=== PATIENT | female | born 1990 | race Asian ===

== ENCOUNTER 2021-09-21 19:39 | Emergency (ER) | payer BC ==
[~2021-09-21] VITALS: Ht 157.5 cm; Wt 45.5 kg
--- NOTE | 2021-09-21 20:20 | NUR ---
2020 G1L0 21.3 WEEK GEST TO LR5 WITH C/O RIGHT SIDE PINCHING PAIN STARTING ON SATUR AND BECOMING WORSE TODAY AROUND 1500. SL NAUSEA YESTERDAY WITH NO EMESIS AND ONE DIARRHEA STOOL LAST NIGHT. TEMP 98.4 B/P 110/55 PULSE 88 RESP 16. NO REBOUND TENDERNESS NOTED. DR HOANG CALLED IN AND WANTS PT EVALUATED IN ER FOR APPENDICITIS. ER CHARGE NURSE NOTED. PT TO ER PER W/C FOR FURTHER EVALUATION. FHT DOPPLER DONE AND 160'S NOTED.
[2021-09-21 20:30] VITALS: BP 110/55; PULSE 88; TEMP 98.4
[2021-09-21 20:40] VITALS: TEMP 98.2
[2021-09-21] MEDS ORDERED: CONCEPT DHA1 CAP PO (20:42)
[2021-09-21] MEDS ORDERED: VIREAD PO (20:43)
[2021-09-21] MEDS ORDERED: VITAMIN D 400400 IU PO (20:44)
[2021-09-21 22:17] LABS: COLLECTION METHOD CLEAN CATCH
[2021-09-21 22:21] LABS: BASO # 0.1 K/mm3 (0.0-0.2); BASO % 0.7 % (0.0-2.0); EOS # 0.1 K/mm3 (0.0-0.7); EOS % 0.9 % (0.0-4.0); GRAN # 8.4 K/mm3 (1.4-6.5); GRAN % 66.6 % (42.2-75.2); HEMATOCRIT 32.5 % (37.0-47.0); LYMPH # 3.2 K/mm3 (1.2-3.4); LYMPH % 25.5 % (20.0-51.0); MEAN CELL VOLUME 83 fl (80.0-100.0); MEAN CORPUSCULAR HEMOGLOBIN 28 pg (27-31); MEAN CORPUSCULAR HGB CONC 34 g/dl (33.0-37.0); MEAN PLATELET VOLUME 9.9 fl (7.4-10.4); MONO # 0.6 K/mm3 (0.1-0.6); PLATELET COUNT 323 K/mm3 (130-400); REDCELL DISTRIBUTION WIDTH-CV 13.5 % (11.5-14.5)
[2021-09-21 22:24] LABS: PH 6 (5-8); SQUAMOUS EPITHELIAL 0-2 /hpf (0-10); URINE APPEARANCE Clear (CLEAR/HAZY); URINE BACTERIA Rare /hpf (NONE SEEN); URINE BILIRUBIN Negative (NEGATIVE); URINE BLOOD Negative (NEGATIVE); URINE GLUCOSE Negative (NEGATIVE); URINE KETONE Negative (NEGATIVE); URINE LEUKOCYTE ESTERASE Trace (NEGATIVE); URINE NITRATE Negative (NEGATIVE); URINE PROTEIN(semi-quant) Negative (NEGATIVE); URINE RBC 0-2 /hpf (0-2); URINE UROBILINOGEN Negative (NEGATIVE)
[2021-09-21 22:27] LABS: URINE COLOR Yellow (YELLOW)
[2021-09-21 22:36] LABS: ALBUMIN 3.3 gm/dL (3.5-5.0); BILIRUBIN,TOTAL 0.3 mg/dL (0.2-1.2); CALCIUM 8.8 mg/dL (8.4-10.2); CREATININE, serum 0.49 mg/dL (0.57-1.11); POTASSIUM 3.6 mmol/L (3.5-4.5); TOTAL PROTEIN 7.1 gm/dL (6.2-8.1)
[2021-09-22 00:31] VITALS: BP 110/65; PULSE 84
== END 2021-09-22 00:31 | disposition home or self-care (01) ==
LOC: LDRO 19:39 → COL.ER 19:39 → EDSTATUS 20:19 → COL.ER 09-22 00:31
PROVIDERS: Personal Emergency Response Attendant
DX: O26.892 Other specified pregnancy related conditions, second trimester (principal); R10.31 Right lower quadrant pain; Z3A.21 21 weeks gestation of pregnancy
CPT/HCPCS: J7030; Q9967

== ENCOUNTER 2022-01-27 09:45 | Outpatient (CLI) | payer BC ==
[~2022-01-27] VITALS: Ht 154.9 cm; Wt 55.9 kg
[~2022-01-27 09:45] MED LIST: CONCEPT DHA1 CAP PO; VIREAD PO; VITAMIN D 400400 IU PO
--- NOTE | 2022-01-27 09:55 | NUR ---
Patient ambulatory to LR3 with spouse, changed into gown, FHR/TOCO monitors placed and explained. Spouse translating for patient. Spouse states patient started dada at about 0400 and were 30min apart and now 20 minutes apart and having bloody show when she wipes. Spouse translates for patient and patient states she has had fluid leaking that is clear. Patient denies decreased movement or vaginal bleeding. Plan of care discussed. SVE-2/75/-2 and amniotest negative and mucus and bloody show noted. Patient and spouse updated and plan of care discussed.
[2022-01-27] MEDS ORDERED: FERROUSGLUC256MG (10:11)
[2022-01-27] MEDS ORDERED: PRENATAL TABLET PO (10:11)
[2022-01-27] MEDS ORDERED: VIREAD PO (10:12)
[2022-01-27] MEDS ORDERED: MIRALAX PA17 GM/Dose PO (10:12)
[2022-01-27 10:30] VITALS: BP 102/71; PULSE 95; TEMP 98.4
[2022-01-27 11:16] VITALS: BP 99/50; PULSE 90
--- NOTE | 2022-01-27 11:16 | NUR ---
Patient off monitors and given discharge instructions. Spouse translates for patient. Questions answered. 1125: Patient ambulates off unit with spouse.
[2022-01-28] MEDS ORDERED: MOTRIN 800800 MG/TAB PO (14:54)
[2022-01-28] MEDS ORDERED: PERCOCET 325 MG1 TA2 PO (18:09)
== END 2022-01-27 11:25 | disposition home or self-care (01) ==
LOC: LDRO 09:45
DX: Z34.90 Encounter for supervision of normal pregnancy, unspecified, unspecified trimester (principal); Z3A.00 Weeks of gestation of pregnancy not specified

== ENCOUNTER 2022-01-28 03:34 | Outpatient (CLI) | payer BC ==
[~2022-01-28] VITALS: Ht 154.9 cm; Wt 55.9 kg
[~2022-01-28 03:34] MED LIST changes: +FERROUSGLUC256MG; +MIRALAX PA17 GM/Dose PO; +PRENATAL TABLET PO
--- NOTE | 2022-01-28 03:45 | NUR ---
To unit via wheelchair for labor assessment, accompanied by spouse. Pt speaks very little [place]an, possibly understands more. trnaslates and is attentive at bedside. reports contractions have been since 01/27/2022. Oriented to room, monitor, plan of care. reports they were here in labor and delivery on 01/27/2022.
[2022-01-28 04:00] VITALS: BP 120/73; PULSE 90
--- NOTE | 2022-01-28 05:45 | NUR ---
Discharge instructions reiewed with pt and spouse. concerned that pt is "having so many contractions and a lot of pain" Explained to that the difference between Sanger Jimenez contractions and labor contractions is if the cervix is dilating. 0572 Discharged off unit via wheelchair
[2022-01-28] MEDS ORDERED: MOTRIN 800800 MG/TAB PO (14:54)
[2022-01-28] MEDS ORDERED: PERCOCET 325 MG1 TA2 PO (18:09)
== END 2022-01-28 05:50 | disposition home or self-care (01) ==
LOC: LDRO 03:34 → LDR 04:22 → LDRO 05:50
DX: O62.4 Hypertonic, incoordinate, and prolonged uterine contractions (principal); Z3A.00 Weeks of gestation of pregnancy not specified
CPT/HCPCS: OP

== ENCOUNTER 2022-01-28 09:36 | Inpatient (IN) | payer BC ==
[2022-01-28] VITALS (47 sets, daily range): BP systolic 77–145; BP diastolic 44–107; PULSE 70–116; TEMP 98–100.1
[~2022-01-28] VITALS: Ht 154.9 cm; Wt 55.9 kg
--- NOTE | 2022-01-28 09:45 | NUR ---
PT SENT OVER FROM CLINIC FOR ADMISSION TO LABOR AND DELIVERY. PLACED IN CLEAN GOWN AND ORIENTED TO LABOR ROOM. DENIES LEAKING OF FLUID. REPORTS POSITIVE MOVEMENT. REPORTS CONTRACTIONS WORSENING SINCE LAST EVENING AROUND 2300. PT UNABLE TO SPEAK CYMRO, /FOB AT BEDSIDE FLUENT IN CYMRO AND ABLE TO INTERPRET. EFM TRACING CATEGORY 1 STRIP UPON ARRIVAL. WILL CONTINUE WITH ADMISSION PER PROTOCOL.
[2022-01-28 10:27] LABS: BASO # 0.1 K/mm3 (0.0-0.2); BASO % 0.5 % (0.0-2.0); EOS % 0.3 % (0.0-4.0); GRAN # 10.3 K/mm3 (1.4-6.5); GRAN % 75.2 % (42.2-75.2); HEMATOCRIT 38.8 % (37.0-47.0); HEMOGLOBIN 13.1 g/dl (12.5-16.0); LYMPH # 2.6 K/mm3 (1.2-3.4); LYMPH % 19.1 % (20.0-51.0); MEAN CELL VOLUME 84 fl (80.0-100.0); MEAN CORPUSCULAR HEMOGLOBIN 28 pg (27-31); MEAN CORPUSCULAR HGB CONC 34 g/dl (33.0-37.0); MEAN PLATELET VOLUME 10.7 fl (7.4-10.4); MONO # 0.6 K/mm3 (0.1-0.6); MONO % 4.2 % (1.7-9.3); PLATELET COUNT 293 K/mm3 (130-400); RED BLOOD COUNT 4.62 M/mm3 (4.10-5.30); REDCELL DISTRIBUTION WIDTH-CV 13.4 % (11.5-14.5)
--- NOTE | 2022-01-28 10:44 | NUR ---
PT REQUESTS EPIDURAL. MICHELLE BOYLE CRNA NOTIFIED.
--- NOTE | 2022-01-28 11:18 | NUR ---
PT TO SITTING POSITION ON EDGE OF BED FOR EPIDURAL PLACEMENT. DIFFICULTY TRACING EFM/TOCO DUE TO MATERNAL POSITIONING. 1118: TEST DOSE PER MICHELLE BOYLE CRNA
--- NOTE | 2022-01-28 11:50 | NUR ---
AT BEDSIDE. SVE /-2. AROM WITH MECONIUM AT THIS TIME PER .
--- NOTE | 2022-01-28 13:50 | NUR ---
AT BEDSIDE. SVE /+1. VORB PER TO BEGIN PITOCIN AT THIS TIME. PT AND SPOUSE AGREEABLE TO POC.
[2022-01-28] MEDS ORDERED: MOTRIN 800800 MG/TAB PO (14:54)
--- NOTE | 2022-01-28 15:30 | NUR ---
AT BEDSIDE. SVE /+1. CATEGORY 1 EFM TRACING. CONTRACTIONS Q3-4 MIN. FIRM WITH PALPATION. PITOCIN INFUSING AT 10MU. NO NEW ORDERS AT THIS TIME.
--- NOTE | 2022-01-28 16:19 | NUR ---
PT C/O INCREASED PAIN IN LOWER BACK AND ABDOMEN. UNABLE TO TALK THROUGH CONTRACTIONS. MULTIPLE ATTEMPTS BY MICHELLE BOYLE TO REDOSE CURRENT EPIDURAL UNSUCCESFUL. DECISION TO PLACE NEW EPIDURAL PER PT AND MICHELLE BOYLE SENIOR CAPITAL MARKETS SPECIALIST SUGGESTIONS. PT TO SITTING POSITION FOR NEW EPIDURAL PLACEMENT. CURRENT EPIDURAL REMOVED AT THIS TIME PER MICHELLE BOLYE CRNA. DIFFICULTY TRACING EFM/TOCO DUE TO MATERNAL POSITION. VITAL SIGNS STABLE. 1619: TEST DOSE PER MICHELLE BOYLE CRNA
--- NOTE | 2022-01-28 16:30 | NUR ---
AT BEDSIDE. SVE /+1. PT PLACED IN LL POSITION ON PEANUT BALL AT THIS TIME. VORB PER TO CONTINUE INCREASING PITOCIN PER PROTOCOL AND FREQUENT POSITION CHANGES TOLERATED.
--- NOTE | 2022-01-28 17:42 | NUR ---
AXILLARY TEMP 100.0. EFM TRACING TACHYCARDIA WITH MINIMAL VARIABILITY. TO BEDSIDE. SVE 7/80/+1, SWOLLEN CERVIX. PITOCIN OFF PER AT THIS TIME. DECISION TO PROCEED WITH CSECTION PER ADVICE. PT AND FOB AGREEABLE WITH POC.
--- NOTE | 2022-01-28 17:58 | NUR ---
IV ANTIBIOTICS STARTED AT THIS TIME. AMPICILLIN AND GENATMYCIN PER VORB FOR DX.CHORIO. PO TYLENOL FOR FEVER CONTROL.
[2022-01-28] MEDS ORDERED: PERCOCET 325 MG1 TA2 PO (18:09)
--- NOTE | 2022-01-28 18:27 | NUR ---
BEDSIDE REPORT AND CARE ASSUMED BY JENNIFER LINN AT THIS TIME
--- NOTE | 2022-01-28 18:35 | NUR ---
Incision site clipped. Hibiclens to incision site. Monitors off. Pt to OR by labor bed with significant other. Do not need to obtain FHR in OR per Dr. Melendez.
--- NOTE | 2022-01-28 20:05 | NUR ---
BP 77/44, PT DENIES FEELING LIGHT HEADED OR NAUSEOUS. FUNDUS FIRM AND DOWN 1 FROM UMBILICUS, SCANT BLEEDING NOTED.
--- NOTE | 2022-01-28 22:15 | NUR ---
REPORT RECEIVED FROM JENNIFER ANTOINE. ASSUMED CARE OF PATIENT AT THIS TIME. PATIENT RESTING IN BED, SIGNIFANT OTHER IN ROOM. INFANT IN NURSERY PER PARENT'S REQUEST. CHUCKS REPLACED UNDER PATIENT'S BUTTOCKS DUE TO PUDDLING OF BLOOD NOTED. UTERUS MASSAGED AND IS FIRM. BRISA-PAD PLACED. POST-OP RECOVERY WAS EXPLAINED TO PATIENT BY THIS NURSE. WILL CONTINUE TO MONITOR FOR INCREASED BLEEDING.
[2022-01-29 03:30] VITALS: BP 109/63; PULSE 63; TEMP 97.7
--- NOTE | 2022-01-29 03:30 | NUR ---
HAMILTON CATHETER EMPTIED AND REMOVED. 1500 ML OF CLEAR, YELLOW URINE NOTED. 10 ML DRAINED FROM CATHETER BALLOON PRIOR TO REMOVAL. PATIENT TOLERATED WELL. EIPIDURAL CATHETER REMOVED. PATIENT ASSISTED TO SIDE OF THE BED WITH MINIMAL ASSISTANCE. PATIENT'S BRISA-AREA CLEANSED WITH WARM WATER. MESH UNDERWEAR AND BRISA-PAD PROVIDED. PATIENT STOOD AT BEDSIDE WITH STANDBY ASSIST. ABDOMINAL BINDER PLACED. PATIENT REPORT MILD DIZZINESS WHICH RESOLVED QUICKLY. PATIENT WAS ABLE TO AMBULATE AROUND HER ROOM AND WASH HER FACE AT THE SINK. PATIENT RETURNED TO BED. VITAL SIGNS OBTAINED. UTERUS NOTED TO BE FIRMLY CONTRACTED WITH SCANT LOCHIA. PATIENT AND SPOUSE EDUCATED BY NURSE ON NORMAL VS ABNORMAL BLEEDING. VERBALIZED UNDERSTANDING.
[2022-01-29 07:00] VITALS: BP 105/71; PULSE 63; TEMP 97.7
--- NOTE | 2022-01-29 09:08 | NUR ---
Initial visit; Parents thanked Retail Marketing Executive for offering congratulations and God's blessings for the of their daughter and requested that prayers continue for mom in thanksgiving for the safe delivery and a rapid and thorough healing.
--- NOTE | 2022-01-29 10:00 | NUR ---
PROFESSIONAL LICENSING DIRECTOR ON SPEAKER PHONE AT THIS TIME TO VERIFY THAT PT DOES NOT DESIRE PROFESSIONAL TRANSLATION. PT STATES TO LICENSING DIRECTOR AND LICENSING DIRECTOR VERIFIES THAT PT WOULD PREFER HER TO INTERPRET FOR HER THROUGHOUT THIS HOSPITAL STAY.
[2022-01-29 12:45] VITALS: BP 98/53; PULSE 78; TEMP 98
[2022-01-29 16:56] VITALS: BP 101/58; PULSE 68; TEMP 98.2
[2022-01-29 20:00] VITALS: BP 96/63; PULSE 96; TEMP 97.6
[2022-01-30 04:00] VITALS: BP 98/50; PULSE 70; TEMP 98.1
[2022-01-30 07:00] VITALS: BP 101/60; PULSE 71; TEMP 98
[2022-01-30 12:05] VITALS: BP 98/61; PULSE 80; TEMP 98.1
[2022-01-30 16:00] VITALS: BP 119/67; PULSE 82; TEMP 97.9
[2022-01-30 19:00] VITALS: BP 108/60; PULSE 74; TEMP 97.8
[2022-01-31 08:06] VITALS: BP 94/57; PULSE 81; TEMP 98.3
--- NOTE | 2022-01-31 12:00 | NUR ---
1200-Reviewed discharge instructions with patient and spouse. Updated on need to follow up with two and six week follow up appointments schekareemled. Instructed on need to hand picker newly prescribed narcotics for pain management. 1230-Patient wheeled out to car with infant and spouse.
== END 2022-01-31 12:30 | disposition home or self-care (01) | DRG 786 ==
LOC: LDRO 09:36 → LDR 09:55 → OB 09:55
PROVIDERS: ADMIT Obstetrics & Gynecology
PROC: 10D00Z1 Extraction of Products of Conception, Low, Open Approach (ICD-10-PCS; principal; 2022-01-28)
DX: O98.42 Viral hepatitis complicating childbirth (principal); O41.1230 Chorioamnionitis, third trimester, not applicable or unspecified; B19.10 Unspecified viral hepatitis B without hepatic coma; O72.1 Other immediate postpartum hemorrhage; O77.0 Labor and delivery complicated by meconium in amniotic fluid; O76 Abnormality in fetal heart rate and rhythm complicating labor and delivery; O32.4XX0 Maternal care for high head at term, not applicable or unspecified; Z37.0 Single live birth; Z3A.39 39 weeks gestation of pregnancy; Z23 Encounter for immunization
CPT/HCPCS: J0290; J1580; J1885; J2405; J2590; J7120